=== PATIENT | male | born 1955 | race Caucasian/White ===

== ENCOUNTER 2020-08-07 14:47 | Outpatient (REF) | payer OTHER, SELFPAY | END 2020-08-07 14:48 | disposition home or self-care (01) | LOC: HO.LAB 14:47 | PROVIDERS: Visit Provider Internal Medicine | DX: Z20.822 Contact with and (suspected) exposure to COVID-19 (principal) | CPT/HCPCS: 36415; C9803; U0003; U0005 ==

== ENCOUNTER 2021-04-20 14:01 | Emergency (ER) | payer OTHER, SELFPAY ==
--- NOTE | ~2021-04-20 | CT_ITS ---
EXAMINATION: CT HEAD WITHOUT CONTRAST CLINICAL INFORMATION: Off balance for 2 weeks. Rule out stroke, bleed or mass effect. COMPARISON: None TECHNIQUE: Contiguous axial imaging was performed from the skull base to vertex without intravenous administration of contrast. This CT examination was performed using dose optimization techniques as appropriate, variously including the following: *Automated exposure control *Adjustment of mA and/or kV according to patient size (this includes techniques or standardized protocols for targeted exams where dose is matched to indication/reason for exam; i.e. extremities or head) *Use of iterative reconstruction technique DLP: 696 mGy-cm FINDINGS: There is no evidence of acute intracranial hemorrhage or territorial infarction. No abnormal mass effect or midline shift is seen. Muller to white matter differentiation is well preserved. No extra-axial fluid collections are identified. The ventricles are normal in size. There is no abnormal attenuation within the brain parenchyma. The osseous structures and soft tissues are normal. The mastoid air cells and visualized portions of the paranasal sinuses are well aerated. CT/CT head/brain wo con IMPRESSION: No acute intracranial pathology.
[2021-04-20 14:20] VITALS: BP 124/67; PULSE 64; RESP 18; TEMP 36.1; O2SAT 100; BMI 20.3
[2021-04-20 15:52] LABS: Hematocrit 41.5 % (42.0-52.0); Mean Corpuscular HGB Conc 33.7 g/dl (31.0-36.0); Mean Corpuscular Hemoglobin 30.4 pg (27.0-33.0); Mean Platelet Volume 10.3 fL (9.4-12.4); Platelet Count 241 X10*3/uL (160-400); Red Blood Count 4.61 X10*6/uL (4.60-5.80); Red Cell Distribution Width 12.7 % (11.0-16.0); White Blood Count 5.5 X10*3/uL (4.8-10.8)
[2021-04-20 16:09] LABS: Anion Gap 11 (12-20); Blood Urea Nitrogen 15 mg/dL (9-16); Calcium 9.7 mg/dL (8.4-10.2); Carbon Dioxide 32 mmol/L (22-29); Chloride 102 mmol/L (96-108); Estimated Glomerular Filt Rate > 60; Glucose Random 98 mg/dL (60-115); Potassium 4.6 mmol/L (3.3-5.1); Sodium 140 mmol/L (135-145)
[2021-04-20 18:19] VITALS: BP 113/68; PULSE 69; RESP 16; TEMP 36.8; O2SAT 99
--- NOTE | 2021-04-20 18:49 | ED.GENADULT ---
HPI - General Adult General Chief complaint: General Medical Stated complaint: hernia hand numbness Time Seen by Provider: 04/20/21 18:19 Source: patient Mode of arrival: ambulatory Limitations: language barrier (Yakut speaking only,iPad historical interpreter used) History of Present Illness HPI narrative: 65-year-old male who presents emergency department for evaluation of feeling off balance for 3 weeks and left hand and forearm numbness and weakness. Patient states that he has been feeling off balance when he walks for the past 3 weeks. He states that this is not changed but has been constant and it has concerned him that is not gone away. He denies feeling dizzy or lightheaded. He denies headache, nausea or vomiting. He denies weakness in his lower extremities. The patient has a history injection opiate use disorder. He states that he has been recovery for approximately 9 months and does take Suboxone. He states that on (12 days prior to evaluation) he injected into his left arm, he points to the antecubital fossa 1 asked to point out the injection site. He states that after injecting, he developed weakness in his left hand and left forearm. He also states that he has numbness of his left arm. He states that this symptom has not improved over the past 12 days. He denied fever, chills, chest pain, shortness of breath, neck pain, back pain, nausea, vomiting, abdominal pain. He has not had any loss of bowel or bladder control. 190: Patient was seen by our head field hockey coach and he did tell the head field hockey coach that he has been injecting opiates every day. This was different than the history that I obtained. Related Data Allergies Allergy/AdvReac Type Severity Reaction Status Date / Time No Known Allergies Allergy Verified 04/20/21 18:47 Review of Systems Review of Systems: Yes all other systems are reviewed and are negative [facility] Past Medical History [facility] Narrative: Past medical history: None. Past surgical history: None. Social history: He smokes 2 packs of cigarettes per day x5 years. He denies alcohol use. He does have a history of injection opiate use disorder is currently in a Suboxone program. He did inject opiates into his left antecubital fossa 12 days prior as discussed in the HPI. Social History Social History Advance Directives: No Advance Directives Information Provided: Yes Physical Exam Vital Signs: Vital Signs: Last Vital Signs Temp 98.2 F 04/20/21 18:19 Pulse 69 04/20/21 18:19 Resp 16 04/20/21 18:19 BP 113/68 04/20/21 18:19 Pulse Ox 99 04/20/21 18:19 BMI result Body Mass Index 20.3 Const: Other: Very pleasant cooperative, male patient, he does not appear to be in distress, answers all questions appropriately. Orientation/consciousness: oriented to person and oriented to place HENMT: Head: Yes normal to inspection, Yes normocephalic and Yes atraumatic Ears: external ears normal General nose exam: Normal external nose present Face and sinus: Yes normal facial exam Mouth: Normal oral and palatal mucosa present Throat: Yes posterior oropharynx normal Eyes: General: appearance normal, both eyes and all related structures Pupils: Equal, round and reactive pupils present Neck: Neck: Yes normal visual inspection, Yes no lymphadenopathy, Yes trachea midline and Yes supple Chest: Chest palpation & inspection: normal inspection of the chest and normal palpation of entire chest wall Resp: Effort & Inspection: normal respiratory effort and able to speak in complete sentences Auscultation: clear to auscultation bilaterally Cardio: Rate: regular rate Rhythm: regular rhythm Heart sounds: S1 normal heart sound present, S2 normal heart sound present and no murmurs GI: Inspection: Yes normal to inspection Palpation (GI): Soft to palpation, nontender and no guarding Auscultation: normal bowel sounds : General: Yes no CVA tenderness Back/Spine/Pelvis: Back: no CVA tenderness Skin: General skin exam: no rashes or lesions noted Neuro: Other: The patient's strength exam of his left arm revealed normal flexion extension of wrist with good strength, he has poor abduction of his fingers with weakness. He also has weakness of the left forearm with pronation. He is decreased light touch sensation to the left forearm and left hand. There is some slight asymmetric swelling of the left hand ring finger PIP joint. Patient's gait was normal. He had a negative Romberg sign. He had good [id number] to finger in both upper extremities. General: oriented to person and oriented to place Cranial nerves: Yes CN's II-XII intact bilaterally and Yes Equal, round and reactive pupils present Cognition (Neuro): normal cognition Extrem: General: Yes normal to inspection Psych: Appearance: grossly normal Speech and movement: Normal speech and movement present Affect: normal affect Attitude: cooperative Thought process: Normal thought process present Thought content: Normal thought content present Course Course Course Narrative: 65-year-old male who presents emergency department for evaluation of feeling off balance approximately 3 weeks specially when he walks and 12 days of left left hand, left forearm weakness with numbness of his left arm after injecting opiates into his left antecubital fossa. The patient did tell a head field hockey coach that he has been using injection heroin/opiate at every day. On physical examination the patient does have weakness of his left hand the left forearm but has no evidence for wrist drop. Does have decreased light touch over the left hand left forearm as well. His neurologic exam was otherwise unremarkable. At this time I suspect the patient may have injected into an artery and may have damaged the muscles of his forearm and hand, the patient has no wrist drop but it is also possible that he may radial neuropathy/set arrived palsy. I did order laboratory evaluation to include CBC, CMP, sedimentation rate, CRP, blood cultures x2 . I will obtain a CT of the patient's head to rule out stroke, bleed, mass effect. 2128: Laboratory evaluation: CBC, ESR and CRP were normal. BMP was unremarkable. CT scan of the brain revealed no acute process to explain the patient's off balance sensation. At this time I suspect that the patient's symptoms are more consistent with accidental arterial injection opiates causing nerve and muscle injury to his forearm and hand. The patient does not have wrist drops I do not think that he has a Monday night palsy/radicular neuropathy. The patient will be referred to our neurologist for further evaluation of his off balance sensation and left findings. Medical Decision Making Lab Data Result diagrams: 04/20/21 15:46 04/20/21 15:46 Labs: Lab Results 04/20/21 04/20/21 04/20/21 Range/Units 15:46 15:46 19:09 WBC 5.5 (4.8-10.8) X10*3/uL RBC 4.61 (4.60-5.80) X10*6/uL Hgb 14.0 (14.0-18.0) g/dl Hct 41.5 L (42.0-52.0) % MCV 90.0 (80.0-98.0) fL MCH 30.4 (27.0-33.0) pg MCHC 33.7 (31.0-36.0) g/dl RDW 12.7 (11.0-16.0) % Plt Count 241 (160-400) X10*3/uL MPV 10.3 (9.4-12.4) fL Absolute Nucleated RBC 0.000 (0.0-0.012) X10*3/uL Nucleated RBC % (auto) 0.0 (0.0-0.2) /100WBC ESR 2 (0-15) MM/HR Sodium 140 (135-145) mmol/L Potassium 4.6 (3.3-5.1) mmol/L Chloride 102 (96-108) mmol/L Carbon Dioxide 32 H (22-29) mmol/L Anion Gap 11 L (12-20) BUN 15 (9-16) mg/dL Creatinine 0.84 (0.5-1.4) mg/dL Estim Creat Clear Calc 75.0 Estimated GFR > 60 Random Glucose 98 (60-115) mg/dL Calcium 9.7 (8.4-10.2) mg/dL C-Reactive Protein (< or = 0.50) mg/dL 04/20/21 Range/Units 19:09 WBC (4.8-10.8) X10*3/uL RBC (4.60-5.80) X10*6/uL Hgb (14.0-18.0) g/dl Hct (42.0-52.0) % MCV (80.0-98.0) fL MCH (27.0-33.0) pg MCHC (31.0-36.0) g/dl RDW (11.0-16.0) % Plt Count (160-400) X10*3/uL MPV (9.4-12.4) fL Absolute Nucleated RBC (0.0-0.012) X10*3/uL Nucleated RBC % (auto) (0.0-0.2) /100WBC ESR (0-15) MM/HR Sodium (135-145) mmol/L Potassium (3.3-5.1) mmol/L Chloride (96-108) mmol/L Carbon Dioxide (22-29) mmol/L Anion Gap (12-20) BUN (9-16) mg/dL Creatinine (0.5-1.4) mg/dL Estim Creat Clear Calc Estimated GFR Random Glucose (60-115) mg/dL Calcium (8.4-10.2) mg/dL C-Reactive Protein 0.45 (< or = 0.50) mg/dL Discharge Plan Discharge Clinical Impression: Left arm weakness, Balance disorder Patient Disposition: Home, Self-Care Additional Instructions: Your blood work was normal. The CT scan of your head did not reveal a clear cause for your sensation of being off balance or weakness in her left arm. At this time, I am concerned that your left arm weakness may be caused by you accidentally injecting into an artery as opposed to vein. I want you to follow-up with our neurologist for further evaluation of your off balance feeling and for your arm weakness. Please call our on-call neurologist see if you get a follow-up appointment within 1 week. Please return to the emergency department if your symptoms get worse or if you develop any symptoms that are concerning to you. Referrals: Bismark Haro MD [Physician] - 1 week
--- NOTE | 2021-04-20 19:09 | MHC.RECOVSUP ---
? Reason for consult: Detox o?? Current location ED[facility]? o?? Identified substance use Heroin ?? Support ? Intervention: o?? Community resources provided o?? Harm reduction discussion ? Plan: o?? Follow up tomorrow? o?? Patient to follow up with HF after discharge ? Additional information: ?Met with Pt. Pt. states that he has using for about a month Pty. states that he was on suboxone but stop taking them after a month.Pt. does not want detox at this time. Gave information on [facility] and treatment facility. Pt. stated that he will get in contact with this week.
[2021-04-20 19:33] LABS: C Reactive Protein 0.45 mg/dL (< or = 0.50)
[2021-04-20 20:09] LABS: Erythrocyte Sedimentation Rate 2 MM/HR (0-15)
== END 2021-04-20 21:44 | disposition home or self-care (01) ==
PROVIDERS: Emergency Provider Emergency Medicine Emergency Medical Services
DX: M62.81 Muscle weakness (generalized) (principal); R26.81 Unsteadiness on feet; R42 Dizziness and giddiness; Z79.899 Other long term (current) drug therapy
CPT/HCPCS: 36415; 70450; 80048; 85027; 85652; 86140; 87040; 99283; 99284

== ENCOUNTER 2021-04-22 11:28 | Emergency (ER) | payer OTHER, SELFPAY ==
[2021-04-22 11:54] VITALS: BP 111/63; PULSE 67; RESP 18; TEMP 36.1; O2SAT 98; BMI 20.3
--- NOTE | 2021-04-22 11:58 | ECG_ITS ---
Test Reason : detox clearance Blood Pressure : / mmHG Vent. Rate : 069 BPM Atrial Rate : 069 BPM P-R Int : 132 ms QRS Dur : 108 ms QT Int : 394 ms P-R-T Axes : 091 078 057 degrees QTc Int : 422 ms Normal sinus rhythm Normal ECG No previous ECGs available Referred By: Generic ED Physician Electronically Signed By:Roman Cadena
--- NOTE | 2021-04-22 12:11 | ED_ITS ---
HPI - Medical Clearance General Chief complaint: Medical Clearance Stated complaint: DETOX CLEARENCE Time Seen by Provider: 04/22/21 12:11 Source: patient and family Limitations: no limitations History of Present Illness HPI Narrative: Patient presents to the ER requesting medical clearance to go to detox for heroin abuse. Patient last used heroin this a.m.. Patient states in the past he was clean for 9 months. Patient was seen to go to detox at this time. Patient denies chest pain shortness of breath fever chills or feeling shaky at this time. Patient denies any other drug use or alcohol use. Patient really wants to get help. Patient denies suicidal ideation. Patient denies taking regular prescribed medications at this time. Related Information Allergies Allergy/AdvReac Type Severity Reaction Status Date / Time No Known Allergies Allergy Verified 04/20/21 18:47 Review of Systems Constitutional: Constitutional: Denies chills, Denies fever(s) and Denies h eadache(s) ENT: Denies dizziness and Denies headache(s) Cardiovascular: Cardiovascular: Denies chest pain, Denies lightheadedness and Denies dyspnea Respiratory: Respiratory: Denies cough and Denies dyspnea Gastrointestinal: Gastrointestinal: Denies diarrhea, Denies nausea and Denies vomiting Musculoskeletal: Musculoskeletal: Denies back pain, Denies muscle cramps and Denies muscle weakness Neurologic: Denies dizziness and Denies headache(s) Hematologic/Lymphatic: Hematologic/Lymphatic: Reports no additional hematologic/lymphatic complaints [facility] Past Medical History Attestation statement: The following information was validated with the patient. Medical History Opiate abuse, episodic Social History Social History Advance Directives: No Advance Directives Information Provided: Yes Physical Exam Vital Signs: Vital Signs: Last Vital Signs Temp 97.7 F 04/22/21 12:45 Pulse 59 04/22/21 12:45 Resp 18 04/22/21 12:45 BP 109/69 04/22/21 12:45 Pulse Ox 100 04/22/21 12:45 BMI result Body Mass Index 20.3 vital signs have been reviewed as normal and appeared to be correct. Blood pressure normal. Heart rate normal. Respiration rate normal. Temperature normal. Oxygen saturation normal. Appearance: Alert. Oriented X3. No acute distress. Head: Normal external exam. Normocephalic. Atraumatic. No Delatorre signs noted. No raccoon eyes noted Eyes: PERRLA. EOMI. Conjunctiva and sclera normal. Eyelids normal. ENT: Pharynx normal. Uvula midline. Moist mucous membranes. Neck: Soft full range of motion, no JVD CVS: Heart regular rate and rhythm no murmurs and rubs Respiratory: Breath sounds are clear to auscultation bilaterally. No accessory muscle use noted. Abdomen: Soft nontender no rebound or guarding positive bowel sounds. Patient has a right inguinal hernia that is reducible no sign of incarceration no discoloration of the skin Back: Full range of motion noted. Skin: Skin warm and dry. Normal skin color. No erythema noted no rashes Extremities: No lower extremity edema. Extremities exhibit normal range of m otion. Extremities nontender. Neuro: Oriented X 3. No motor deficit. No sensory deficit. Reflexes normal. Psych: Denies suicidal ideation Course Course Course Narrative: Medical clearance Polysubstance abuse Heroin abuse Patient looking for medical clearance to go to detox at this time labs EKG pending. Patient is without any medical complaints at this time. Patient last used heroin this morning. At this time cow scale is negative. 12:47 p.m. Patient has a known chronic right inguinal hernia exam it is reducible no sign of incarceration 2:27 p.m. it is assumed at this time patient eloped unsure why that happened [facility] - Medical Clearance Lab Data Result diagrams: 04/22/21 12:24 04/22/21 12:25 Labs: Lab Results 04/22/21 04/22/21 04/22/21 Range/Units 12:22 12:24 12:25 WBC 6.1 (4.8-10.8) X10*3/uL RBC 4.14 L (4.60-5.80) X10*6/uL Hgb 12.7 L (14.0-18.0) g/dl Hct 37.2 L (42.0-52.0) % MCV 89.9 (80.0-98.0) fL MCH 30.7 (27.0-33.0) pg MCHC 34.1 (31.0-36.0) g/dl RDW 12.6 (11.0-16.0) % Plt Count 232 (160-400) X10*3/uL MPV 10.6 (9.4-12.4) fL Immature Gran % (Auto) 0.2 (0.0-0.4) % Neut % (Auto) 69.2 (45-73) % Lymph % (Auto) 21.0 (20-40) % [place] % (Auto) 8.9 (2-11) % Eos % (Auto) 0.5 (0-4) % Baso % (Auto) 0.2 (0-2) % Lymph # (Auto) 1.3 (1.2-4.9) X10*3/uL [place] # (Auto) 0.5 (0.1-1.2) X10*3/uL Eos # (Auto) 0.0 (0.0-0.4) X10*3/uL Baso # (Auto) 0.0 (0.0-0.2) X10*3/uL Abs Immat Gran (auto) 0.01 (0.00-0.03) X10*3/uL Absolute Neuts (auto) 4.2 (2.0-8.3) x10*3/uL Absolute Nucleated RBC 0.000 (0.0-0.012) X10*3/uL Nucleated RBC % (auto) 0.0 (0.0-0.2) /100WBC Sodium 139 (135-145) mmol/L Potassium 4.4 (3.3-5.1) mmol/L Chloride 101 (96-108) mmol/L Carbon Dioxide 31 H (22-29) mmol/L Anion Gap 11 L (12-20) BUN 21 H (9-16) mg/dL Creatinine 0.85 (0.5-1.4) mg/dL Estim Creat Clear Calc 74.1 Estimated GFR > 60 Random Glucose 112 (60-115) mg/dL Calcium 9.6 (8.4-10.2) mg/dL Total Bilirubin 0.3 (0.0-1.0) mg/dL AST 27 (5-37) U/L ALT 27 (0-40) U/L Alkaline Phosphatase 44 (39-117) U/L Total Protein 6.9 (6.5-8.0) g/dL Albumin 4.1 (3.5-5.0) g/dL COVID-19 (AFSANEH) Negative (Negative) COVID-19 Clin Com See Note ECG Data ECG interpretation date: 04/22/21 ECG interpretation time: 12:37 Interpretation: ECG normal sinus rhythm at a rate of [address] elevation no prior to compare. AR intervals normal Discharge Plan Discharge Clinical Impression: Heroin abuse Patient Disposition: Elopement
[2021-04-22 12:38] LABS: MANUAL DIFF FLAG NO
[2021-04-22 12:42] LABS: Basophils Percent Auto 0.2 % (0-2); Eosinophils Percent Auto 0.5 % (0-4); Hematocrit 37.2 % (42.0-52.0); Hemoglobin 12.7 g/dl (14.0-18.0); Imm Gran Abs Auto 0.01 X10*3/uL (0.00-0.03); Imm Gran Pct Auto 0.2 % (0.0-0.4); Lymphocytes Absolute Auto 1.3 X10*3/uL (1.2-4.9); Mean Corpuscular HGB Conc 34.1 g/dl (31.0-36.0); Mean Corpuscular Hemoglobin 30.7 pg (27.0-33.0); Mean Corpuscular Volume 89.9 fL (80.0-98.0); Mean Platelet Volume 10.6 fL (9.4-12.4); Monocytes Absolute Auto 0.5 X10*3/uL (0.1-1.2); Monocytes Percent Auto 8.9 % (2-11); Neutrophils Absolute Auto 4.2 x10*3/uL (2.0-8.3); Neutrophils Percent Auto 69.2 % (45-73); Platelet Count 232 X10*3/uL (160-400); Red Blood Count 4.14 X10*6/uL (4.60-5.80); Red Cell Distribution Width 12.6 % (11.0-16.0); White Blood Count 6.1 X10*3/uL (4.8-10.8)
[2021-04-22 12:45] VITALS: BP 109/69; PULSE 59; RESP 18; TEMP 36.5; O2SAT 100
[2021-04-22 12:54] LABS: Alanine Aminotransferase 27 U/L (0-40); Albumin Level 4.1 g/dL (3.5-5.0); Alkaline Phosphatase 44 U/L (39-117); Anion Gap 11 (12-20); Aspartate Amino Transferase 27 U/L (5-37); Bilirubin Total 0.3 mg/dL (0.0-1.0); Blood Urea Nitrogen 21 mg/dL (9-16); Calcium 9.6 mg/dL (8.4-10.2); Carbon Dioxide 31 mmol/L (22-29); Chloride 101 mmol/L (96-108); Creatinine Clr Calc Pharmacy 74.1; Estimated Glomerular Filt Rate > 60; Glucose Random 112 mg/dL (60-115); Potassium 4.4 mmol/L (3.3-5.1); Sodium 139 mmol/L (135-145); Total Protein 6.9 g/dL (6.5-8.0)
[2021-04-22 12:57] LABS: COVID-19 Test Negative (Negative); IDNOW Serial# 9DD0AD1C
== END 2021-04-22 14:27 | disposition left against medical advice (07) ==
PROVIDERS: Emergency Provider Emergency Medicine
DX: F11.10 Opioid abuse, uncomplicated (principal); Z20.822 Contact with and (suspected) exposure to COVID-19
CPT/HCPCS: 36415; 80053; 85025; 87635; 93005; 99283